=== PATIENT | female | born 1930 | race Caucasian/White ===

== ENCOUNTER 2017-08-22 16:44 | Emergency (ER) | payer MEDICARE, BC ==
[2017-08-22 17:00] VITALS: BP 127/96
--- NOTE | 2017-08-22 17:14 | EDM.PDOC ---
ED HPI GENERAL MEDICAL PROBLEM - General Chief Complaint: Neck Problem Stated Complaint: FELL-INJURED BACK Time Seen by Provider: 08/22/17 16:45 Source of Information: Reports: Patient History Limitations: Reports: No Limitations - History of Present Illness INITIAL COMMENTS - FREE TEXT/NARRATIVE: 87 y.o.w.f fell and hit her head and neck. Pt is on Coumadine due to a blood clot "in her veins" Pt was transferred from the cling to get a CT of head and neck. Pt underwent a full PE at the clinic including wond repair. No other acute medical issues. BP 126/67 pulse 76 RR 18 O2 100% 0n RA Temp 36.8 Onset Date: 08/22/17 Onset Time: 10:00 Duration: Hour(s):, Improving Location: Reports: Head, Neck Quality: Reports: Dull Severity: Mild Improves with: Reports: Rest Worsens with: Reports: Movement Context: Reports: Trauma Associated Symptoms: Reports: No Other Symptoms - Related Data Allergies Allergy/AdvReac Type Severity Reaction Status Date / Time ciprofloxacin Allergy Abdominal Verified 10/04/13 08:06 Pain oxycodone Allergy Confusion Verified 08/22/17 16:52 Home Meds: Home Meds Alendronate Sodium [Fosamax] 70 mg PO Q7D 10/04/13 [History] Calcium Carb & Citrate/Vit D3 [Calcium + Vitamin D3 Caplet] 1 each PO DAILY 02/07 [History] Lansoprazole [Prevacid] 30 mg PO DAILY 10/04/13 [History] Multivitamin with Minerals [Multiple Vitamin] 1 tab PO DAILY 10/04/13 [History] Jackson-3 Fatty Acids [Jackson-3] 1,000 mg PO DAILY 10/04/13 [History] Oxybutynin 5 mg PO BID 10/04/13 [History] atorvaSTATin [Lipitor] 10 mg PO DAILY 10/04/13 [History] Acetaminophen 650 mg PO BID 08/22/17 [History] Exemestane 25 mg PO DAILY 08/22/17 [History] Menthol [Biofreeze] 1 applic TOP BID PRN 08/22/17 [History] Nortriptyline 10 mg PO BEDTIME 08/22/17 [History] Warfarin Sodium [Jantoven] 2.5 mg PO ASDIRECTED 08/22/17 [History] Past Medical History Cardiovascular History: Reports: Blood Clots/VTE/DVT, High Cholesterol, Hypertension Genitourinary History: Reports: Other (See Below) Other Genitourinary History: takes bladder med @ [facility] [employer] History: Reports: Other OB/BYN History: Musculoskeletal History: Reports: Arthritis Endocrine/Metabolic History: Reports: Obesity/BMI 30+ Hematologic History: Reports: Anticoagulation Therapy Oncologic (Cancer) History: Reports: Breast - Infectious Disease History Infectious Disease History: Reports: Measles - Past Surgical History HEENT Surgical History: Reports: Cataract Surgery Other HEENT Surgeries/Procedures: bilat cataract GI Surgical History: Reports: Colonoscopy Musculoskeletal Surgical History: Reports: None Oncologic Surgical History: Reports: Mastectomy Other Oncologic Surgeries/Procedures: L mastectomy Social & Family History - Family History Family Medical History: Noncontributory - Tobacco Use Smoking Status *Q: Former Smoker Years of Tobacco use: 25 Used Tobacco, but Quit: Yes Month/Year Tobacco Last Used: mar - Caffeine Use Caffeine Use: Reports: Coffee - Alcohol Use Days Per Week of Alcohol Use: 1 Number of Drinks Per Day: 1 Total Drinks Per Week: 1 - Recreational Drug Use Recreational Drug Use: No Review of Systems - Review of Systems Review Of Systems: See Below Constitutional: Reports: No Symptoms Eyes: Reports: No Symptoms Ears: Reports: No Symptoms Nose: Reports: No Symptoms Mouth/Throat: Reports: No Symptoms Respiratory: Reports: No Symptoms Cardiovascular: Reports: No Symptoms GI/Abdominal: Reports: No Symptoms Genitourinary: Reports: No Symptoms Musculoskeletal: Reports: No Symptoms Skin: Reports: Wound Neurological: Reports: No Symptoms Psychiatric: Reports: No Symptoms ED EXAM, GENERAL - Physical Exam Exam: See Below Exam Limited By: No Limitations General Appearance: Alert, WD/WN, No Apparent Distress Eye Exam: Bilateral Eye: Normal Inspection Ear Exam: Bilateral Ear: Auricle Normal Nose: Normal Inspection, Normal Mucosa, No Blood Throat/Mouth: Normal Inspection, Normal Gums Head: Normocephalic, Other (S/P LAC repair right forehead) Neck: Normal Inspection, Supple, Non-Tender Respiratory/Chest: No Respiratory Distress, Lungs Clear, Normal Breath Sounds, No Accessory Muscle Use, Chest Non-Tender Cardiovascular: Normal Peripheral Pulses, Regular Rate, Rhythm, No Edema, No Gallop, No Murmur, No Rub Peripheral Pulses: 1+: Radial (L) GI/Abdominal: Normal Bowel Sounds, Soft, Non-Tender, No Organomegaly, No Distention, No Abnormal Bruit, No Mass, Pelvis Stable (Female) Exam: Deferred Rectal (Female) Exam: Deferred Back Exam: Normal Inspection, Full Range of Motion Extremities: Normal Inspection, Normal Range of Motion, Non-Tender, No Pedal Edema, Normal Capillary Refill Neurological: Alert, Oriented, CN II-XII Intact, Normal Cognition, Normal Gait, No Motor/Sensory Deficits Psychiatric: Normal Affect, Normal Mood Skin Exam: Warm, Dry, Intact (s/p wound repair by PA right forehead), Normal Color, No Rash Lymphatic: No Adenopathy Course - Vital Signs Text/Narrative:: 87 y.o.w.f fell and hit her head and neck. Pt is on Coumadine due to a blood clot "in her veins" Pt was transferred from the cling to get a CT of head and neck. Pt underwent a full PE at the clinic including wond repair. No other acute medical issues. BP 126/67 pulse 76 RR 18 O2 100% 0n RA Temp 36.8 PE: WNWDWN w f came to the ed after she fell to head and neck, pt was seen in the clinic and sent to the ed for head and neck CT imaging Imaging: CT head and cervical spine: NAD as per RAD Impression: S/P fall, head LAC Tx: Non in this ED Plan: D/C with instructions Last Recorded V/S: Last Vital Signs Temp 36.9 C 08/22/17 16:45 Pulse 95 08/22/17 16:45 Resp 18 08/22/17 16:45 BP 127/96 H 08/22/17 16:45 Pulse Ox 100 08/22/17 16:45 - Orders/Labs/Meds Orders: Active Orders 24 hr Category Date Time Status Cervical Spine wo Cont [CT] Stat Exams 08/22/17 17:12 Taken Head wo Cont [CT] Stat Exams 08/22/17 17:12 Taken Departure - Departure Time of Disposition: 18:36 Disposition: Home, Self-Care 01 Condition: Good Clinical Impression: Neck arthritis Head trauma Qualifiers: Encounter type: initial encounter Qualified Code(s): S09.90XA - Unspecified injury of head, initial encounter - Discharge Information Instructions: Arthritis, [id number] Referrals: Kathy Pulido NP [Primary Care Provider] - Forms: ED Department Discharge Additional Instructions: Please cont your meds, please f/u, come back if your symptoms get worse acutely - My Orders Last 24 Hours: My Active Orders 08/22/17 17:12 Cervical Spine wo Cont [CT] Stat Head wo Cont [CT] Stat - Assessment/Plan Last 24 Hours: My Active Orders 08/22/17 17:12 Cervical Spine wo Cont [CT] Stat Head wo Cont [CT] Stat
--- NOTE | 2017-08-23 08:17 | CT ---
INDICATION: Trauma, fell at home this a.m., on Coumadin. CT HEAD WITHOUT CONTRAST: Serial contiguous 2.5 and 5 mm sections were obtained through the brain without contrast, 08/22/2017. No comparisons were available. Total exam DLP = 950.31 mGy-cm. Paranasal sinuses and mastoid air cells were well-aerated. No cranial abnormality was seen - no fracture site was identified. There is some minimal soft tissue swelling overlying the right frontal bone area. Calcifications are noted in the internal carotid arteries. No shift of midline structures was identified. Ventricles are prominent, compatible with central atrophy. Diffuse patchy white matter changes are noted, compatible with moderately severe microvascular disease type changes of the white matter, although other cause of leukoencephalopathy cannot be excluded. A tiny lacunar infarct may be present in the left basal ganglia. No bleeding site or hematoma was identified. IMPRESSION: 1. No definite acute intracranial abnormality identified. 2. Moderately severe white matter changes compatible with microvascular disease - correlate clinically. 3. Central atrophy. 4. Cerebrovascular disease with arterial calcifications in internal carotid arteries. Report was called to Dr. Garces at 1830 hours on 08/22/2017. [facility]
--- NOTE | 2017-08-23 08:24 | CT ---
INDICATION: Trauma, fell at home this a.m., on Coumadin. CT CERVICAL SPINE: Spiral 2.5 mm axial sections were obtained through the cervical spine with sagittal and coronal reconstructions. Total exam DLP = 439.99 mGy-cm. Prevertebral space appeared to be normal. Bone density appeared to be fairly normal. A definite acute fracture or dislocation was not identified with the odontoid and atlas appearing intact. Hypertrophic degenerative changes and narrowing with irregularity of the atlantoodontoid joint are noted. There appears to be fusion of the posterior processes of C3-4 on the right. Grade 1 anterolisthesis is also noted at C3-4 and C4-5 as well, with narrowing of disk space at C3-4 and C5-6, as well as to a lesser degree C6-7. Hypertrophic changes are noted off vertebral bodies anteriorly at C4-5 and to a greater extent C5-6, C6-7. At the latter two levels, there is some narrowing of the neural foramina. Reversal of normal cervical lordosis is also centered at C4-5. C7-T1 vertebral bodies are fused, as are posterior elements partly fused at that level. IMPRESSION: 1. No acute fracture or dislocation. 2. Degenerative changes and disk disease. 3. Developmental anomalies. Report was called to Dr. Garces at 1830 hours on 08/22/2017. [facility]
== END 2017-08-22 18:50 | disposition home or self-care (01) ==
LOC: FB.ED 16:44
DX: S09.90XA Unspecified injury of head, initial encounter (principal); M12.50 Traumatic arthropathy, unspecified site; I10 Essential (primary) hypertension; E66.9 Obesity, unspecified; Z87.891 Personal history of nicotine dependence; Z88.8 Allergy status to other drugs, medicaments and biological substances; Z88.5 Allergy status to narcotic agent; Z79.899 Other long term (current) drug therapy; W19.XXXA Unspecified fall, initial encounter
CPT/HCPCS: 70450; 72125; 99284